=== PATIENT | male | born 1960 | race Caucasian/White ===

== ENCOUNTER 2016-10-23 17:17 | Emergency (ER) | payer BC, OTHER ==
--- NOTE | 2016-10-23 18:08 | EDM.PDOC ---
ED HPI GENERAL MEDICAL PROBLEM - General Chief Complaint: Head Injury Stated Complaint: WORK RELATED FALL Time Seen by Provider: 10/23/16 18:02 Source of Information: Reports: Patient History Limitations: Reports: No Limitations - History of Present Illness INITIAL COMMENTS - FREE TEXT/NARRATIVE: HISTORY AND PHYSICAL: []56-year-old male presenting with injury while at work today History of Present Illness: []Patient was walking down several steps the last step was not attached as it rolled forward he was thrown backwards striking his head his neck and back He denies having any loss of consciousness Remembers the incident occurring Patient is on Xarelto for Atrial Fibrillation Review of Systems: As per history of present illness and below otherwise all systems reviewed and negative. Past medical history: As per history of present illness and as reviewed below otherwise noncontributory. Surgical history: As per history of present illness and as reviewed below otherwise noncontributory. Social history: No reported history of drug or alcohol abuse. Family history: As per history of present illness and as reviewed below otherwise noncontributory. Physical exam: Alert and oriented gentleman answering questions appropriately. Using a full sentences without any shortness of breath. HEENT: Abrasions noted to the posterior crown, normocehpalic, pupils reactive, negative for conjunctival pallor or scleral icterus, mucous membranes moist, throat clear, neck stiffness tender upon palpation, nontender, trachea midline. Lungs: Clear to auscultation, breath sounds equal bilaterally, posterior chest tender. Heart: S1S2, regular, negative for clicks, rubs, or JVD. Abdomen: Soft, nondistended, nontender. Negative for masses or hepatossplenmegaly. Negative for costovertebral tenderness. Pelvis: Stable nontender. Genitourinary: Deferred. Rectal: Deferred Extremities: Atraumatic, negative for cords or calf pain. Neurovascular unremarkable. Neuro: Awake, alert, oriented. Cranial nerves II through XII unremarkable. Cerebellum unremarkable. Motor and sensory unremarkable throughout. Exam nonfocal. Diagnostics: [CT head and C-spine chest x-ray thoracic spine all are negative for fractures or dislocations] Therapeutics: [] Impression: [Multiple contusions] Plan: [Discharged to home [id number] medications for discomfort as directed on the bottle Any worsening of symptoms dizziness severe headaches return for immediate reevaluation Follow-up in 2 days with your primary care provider for reevaluation] Definitive disposition and diagnosis as appropriate pending reevaluation and review of above. Onset: Today, Sudden Onset Date: 10/23/16 Onset Time: 13:40 Duration: Hour(s): Location: Reports: Head, Neck, Chest Quality: Reports: Ache, Stabbing Severity: Moderate Improves with: Reports: None Associated Symptoms: Reports: Headaches Neck Pain Score (Numeric/FACES): 8 - Related Data Allergies Allergy/AdvReac Type Severity Reaction Status Date / Time oxycodone Allergy Hives Verified 10/23/16 17:54 Home Meds: Home Meds Escitalopram [Lexapro] 10 mg PO DAILY 04/09/14 [History] Losartan Potassium 100 mg PO DAILY 04/09/14 [History] Metoprolol Succinate 50 mg PO DAILY 04/09/14 [History] Simvastatin [Zocor] 20 mg PO BEDTIME #30 tablet 04/09/14 [Rx] Aspirin [Halfprin] 81 mg PO DAILY 10/23/16 [History] Rivaroxaban [Xarelto] 20 mg PO DAILY 10/23/16 [History] Social & Family History - Tobacco Use Smoking Status *Q: Current Every Day Smoker Years of Tobacco use: 40 Packs/Tins Daily: 1 Used Tobacco, but Quit: No Second Hand Smoke Exposure: No - Caffeine Use Caffeine Use: Reports: None - Alcohol Use Days Per Week of Alcohol Use: 7 Number of Drinks Per Day: 2 Total Drinks Per Week: 14 - Recreational Drug Use Recreational Drug Use: No ED ROS GENERAL - Review of Systems Review Of Systems: ROS reveals no pertinent complaints other than HPI. ED EXAM, HEAD INJURY - Physical Exam Exam: See Below (See dictation) EKG INTERPRETATION EKG Date: 10/23/16 Rhythm: NSR Comparison: NA - No Prior EKG Course - Vital Signs Last Recorded V/S: Last Vital Signs Temp 36.5 C 10/23/16 19:14 Pulse 61 10/23/16 19:14 Resp 18 10/23/16 19:14 BP 141/73 H 10/23/16 19:14 Pulse Ox 95 10/23/16 19:14 - Orders/Labs/Meds Orders: Active Orders 24 hr Category Date Time Status EKG Documentation Completion [RC] STAT Care 10/23/16 18:11 Active Cervical Spine wo Cont [CT] Stat Exams 10/23/16 18:12 Taken Chest 2V [CR] Stat Exams 10/23/16 18:12 Taken Head wo Cont [CT] Stat Exams 10/23/16 18:11 Taken Sodium Chloride 0.9% [Saline Flush] Med 10/23/16 18:11 Active 10 ml FLUSH ASDIRECTED PRN Sodium Chloride 0.9% [Saline Flush] Med 10/23/16 18:11 Active 2.5 ml FLUSH ASDIRECTED PRN Saline Lock Insert [OM.PC] Stat Oth 10/23/16 18:11 Ordered Medication Orders Sodium Chloride (Saline Flush) 10 ml FLUSH ASDIRECTED PRN PRN Reason: Keep Vein Open Sodium Chloride (Saline Flush) 2.5 ml FLUSH ASDIRECTED PRN PRN Reason: Keep Vein Open Labs: Laboratory Tests 10/23/16 10/23/16 10/23/16 Range/Units 16:50 18:16 18:16 WBC 10.98 (4.0-11.0) K/uL RBC 5.19 (4.50-5.90) M/uL Hgb 16.6 (13.0-17.0) g/dL Hct 48.1 (38.0-50.0) % MCV 92.7 (80.0-98.0) fL MCH 32.0 (27.0-32.0) pg MCHC 34.5 (31.0-37.0) g/dL RDW Std Deviation 44.7 (28.0-62.0) fl RDW Coeff of Demi 13 (11.0-15.0) % Plt Count 191 (150-400) K/uL MPV 10.70 (7.40-12.00) fL Neut % (Auto) 60.9 (48.0-80.0) % Lymph % (Auto) 25.2 (16.0-40.0) % [place] % (Auto) 9.7 (0.0-15.0) % Eos % (Auto) 3.6 (0.0-7.0) % Baso % (Auto) 0.6 (0.0-1.5) % Neut # (Auto) 6.7 H (1.4-5.7) K/uL Lymph # (Auto) 2.8 H (0.6-2.4) K/uL [place] # (Auto) 1.1 H (0.0-0.8) K/uL Eos # (Auto) 0.4 (0.0-0.7) K/uL Baso # (Auto) 0.1 (0.0-0.1) K/uL Nucleated RBC % 0.0 /100WBC Nucleated RBCs # 0 K/uL Sodium 141 (136-146) mmol/L Potassium 4.2 (3.5-5.1) mmol/L Chloride 109 (98-110) mmol/L Carbon Dioxide 22 (21-31) mmol/L BUN 19 (6.0-23.0) mg/dL Creatinine 0.8 (0.6-1.5) mg/dL Est Cr Clr Drug Dosing 94.10 mL/min Estimated GFR (MDRD) > 60.0 ml/min Glucose 86 (60-110) mg/dL Calcium 9.5 (8.8-10.8) mg/dL Total Bilirubin 0.9 (0.1-1.5) mg/dL AST 20 (5-40) IU/L ALT 30 (8-54) IU/L Alkaline Phosphatase 65 (40-150) Total Protein 7.9 (6.0-8.0) g/dL Albumin 4.3 (3.5-5.0) g/dL Globulin 3.6 H (2.0-3.5) g/dL Albumin/Globulin Ratio 1.2 L (1.3-2.8) Urine Color YELLOW Urine Appearance CLEAR Urine pH 5.5 (5.0-8.0) Ur Specific [place] 1.025 (1.001-1.035) Urine Protein NEGATIVE (NEGATIVE) mg/dL Urine Glucose (UA) NEGATIVE (NEGATIVE) mg/dL Urine Ketones NEGATIVE (NEGATIVE) mg/dL Urine Occult Blood TRACE-LYSED (NEGATIVE) Urine Nitrite NEGATIVE (NEGATIVE) Urine Bilirubin NEGATIVE (NEGATIVE) Urine Urobilinogen 1.0 (<2.0) EU/dL Ur Leukocyte Esterase NEGATIVE (NEGATIVE) Urine RBC 0-2 (0-2/HPF) Urine WBC 0-1 (0-5/HPF) Ur Epithelial Cells RARE (NONE-FEW) Urine Bacteria RARE (NEGATIVE) Meds: Medications Generic Name Dose Route Start Last Admin Trade Name Freq PRN Reason Stop Dose Admin Sodium Chloride 10 ml 08/21/17 18:11 Saline Flush FLUSH ASDIRECTED PRN Keep Vein Open Sodium Chloride 2.5 ml 10/23/16 18:11 Saline Flush FLUSH ASDIRECTED PRN Keep Vein Open Departure - Departure Time of Disposition: 19:29 Disposition: Home, Self-Care 01 Condition: Good Clinical Impression: Multiple contusions - Discharge Information Forms: ED Department Discharge Additional Instructions: The following information is given to patients seen in the emergency department who are being discharged to home. This information is to outline your options for follow-up care. We provide all patients seen in our emergency department with a follow-up referral. The need for follow-up, as well as the timing and circumstances, are variable depending upon the specifics of your emergency department visit. If you don't have a primary care physician on staff, we will provide you with a referral. We always advise you to contact your personal physician following an emergency department visit to inform them of the circumstance of the visit and for follow-up with them and/or the need for any referrals to a consulting specialist. The emergency department will also refer you to a specialist when appropriate. This referral assures that you have the opportunity for followup care with a specialist. All of these measure are taken in an effort to provide you with optimal care, which includes your followup. Under all circumstances we always encourage you to contact your private physician who remains a resource for coordinating your care. When calling for followup care, please make the office aware that this follow-up is from your recent emergency room visit. If for any reason you are refused follow-up, please contact the [facility] emergency department at and asked to speak to the emergency department charge nurse. Please follow-up with your primary care provider in the next 2 days for reevaluation As you experience increasing headaches difficulty breathing or worsening of symptoms before then please return for reevaluation to the emergency department - My Orders Last 24 Hours: My Active Orders 10/23/16 18:11 EKG Documentation Completion [RC] STAT Head wo Cont [CT] Stat Sodium Chloride 0.9% [Saline Flush] 10 ml FLUSH ASDIRECTED PRN Sodium Chloride 0.9% [Saline Flush] 2.5 ml FLUSH ASDIRECTED PRN Saline Lock Insert [OM.PC] Stat 10/23/16 18:12 Cervical Spine wo Cont [CT] Stat Chest 2V [CR] Stat - Assessment/Plan Last 24 Hours: My Active Orders 10/23/16 18:11 EKG Documentation Completion [RC] STAT Head wo Cont [CT] Stat Sodium Chloride 0.9% [Saline Flush] 10 ml FLUSH ASDIRECTED PRN Sodium Chloride 0.9% [Saline Flush] 2.5 ml FLUSH ASDIRECTED PRN Saline Lock Insert [OM.PC] Stat 10/23/16 18:12 Cervical Spine wo Cont [CT] Stat Chest 2V [CR] Stat
[2016-10-23] MEDS ORDERED: Sodium Chloride 0.9% 2.5 ML Syringe FLUSH PRN (18:11)
[2016-10-23] MEDS ORDERED: Sodium Chloride 0.9% 10 ML Syringe FLUSH PRN (18:11)
[2016-10-23 18:45] LABS: CHLORIDE,CL 109 mmol/L (98-110); SODIUM,NA 141 mmol/L (136-146)
[2016-10-23 20:03] VITALS: BP 161/83
--- NOTE | 2016-10-24 10:31 | CT ---
EXAM DATE: 10/23/16 PATIENT'S AGE: 56 Patient: SCOUT THAKUR Facility: [place], [place] Site . Site : 1960 Study: CT Head [id number]/21/2017 6:41:52 PM Ordering Physician: Doctor Kelsey Final Report: INDICATION: Fall and hit back of head TECHNIQUE: CT head without contrast. COMPARISON: None FINDINGS: CSF spaces: Within normal limits for age. Brain parenchyma: The bowen-white differentiation is normal. No sign of mass, hemorrhage, or midline shift. Skull base and calvarium: The visualized paranasal sinuses and mastoid air cells demonstrate no acute or significant findings. The visualized orbits are grossly unremarkable. No skull fractures. IMPRESSION: Unremarkable noncontrast head CT. No evidence of acute intracranial trauma. Dictated by Palmer Spencer MD @ 10/23/2016 7:19:27 PM Dictated by: Palmer Spencer MD @ 10/23/2016 19:19:31 (Electronic Signature) Report Signed by Proxy. [facility]
--- NOTE | 2016-10-24 10:32 | CT ---
EXAM DATE: 10/23/16 PATIENT'S AGE: 56 Patient: SCOUT THAKUR Facility: [place], [place] Site . Site : 1960 Study: CT Spine Cervical [id number]/21/2017 6:42:08 PM Ordering Physician: Doctor Kelsey Final Report: INDICATION: Fall TECHNIQUE: CT cervical spine without contrast. COMPARISON: None FINDINGS: Vertebral alignment: Alignment is normal. Vertebrae: There are no fractures or suspicious bony lesions. Discs and facet joints: Multilevel degenerative changes. Extraspinal findings: Prevertebral soft tissues, visualized airway, and visualized lungs are unremarkable. IMPRESSION: Atraumatic appearance of the cervical spine. Multilevel degenerative changes. Dictated by Palmer Spencer MD @ 10/23/2016 7:16:29 PM Dictated by: Palmer Spencer MD @ 10/23/2016 19:16:36 (Electronic Signature) Report Signed by Proxy. [email or web address]
--- NOTE | 2016-10-24 10:33 | CR ---
EXAM DATE: 10/23/16 PATIENT'S AGE: 56 Patient: SCOUT THAKUR Facility: [place], [place] Site . Site : 1960 Study: XRay Chest [id number]/21/2017 6:44:33 PM Ordering Physician: Doctor Kelsey Final Report: INDICATION: pain/sob CHEST, PA AND LATERAL Upright PA and lateral radiographs of the chest were performed. Comparison: No previous studies are currently available for comparison. The lungs appear clear and there are no pleural effusions. Heart size and pulmonary vasculature appear normal. Visualized bones show no significant findings. IMPRESSION: No acute intrathoracic abnormality identified. NINI DENNY MD [employer] Dictated by: Kj Denny MD @ 10/23/2016 19:21:31 (Electronic Signature) Report Signed by Proxy. [facility]
== END 2016-10-23 20:01 | disposition home or self-care (01) ==
LOC: MW.ED 17:17
DX: S00.93XA Contusion of unspecified part of head, initial encounter (principal); S20.229A Contusion of unspecified back wall of thorax, initial encounter; S00.01XA Abrasion of scalp, initial encounter; F17.210 Nicotine dependence, cigarettes, uncomplicated; I48.91 Unspecified atrial fibrillation; Z79.82 Long term (current) use of aspirin; Z79.899 Other long term (current) drug therapy; Z88.6 Allergy status to analgesic agent; W10.8XXA Fall (on) (from) other stairs and steps, initial encounter; Y92.69 Other specified industrial and construction area as the place of occurrence of the external cause; Y99.0 Civilian activity done for income or pay
CPT/HCPCS: 36415; 70450; 70450-26; 71020; 71020-26; 72125; 72125-26; 80053; 81001; 85025; 93005; 99283; 99284-25